=== PATIENT | male | born 1975 ===

== ENCOUNTER → 2016-06-29 | Outpatient (CLI) | payer OTHER | LOC: COL.RAD 06-26 14:15 | DX: S43.492A Other sprain of left shoulder joint, initial encounter (principal); X58.XXXA Exposure to other specified factors, initial encounter | CPT/HCPCS: A9585; Q9967 ==

== ENCOUNTER 2020-11-29 15:15 | Outpatient (RCR) | payer OTHER, BC | END 2021-01-15 09:36 | disposition home or self-care (01) | LOC: PT.GENESIS 15:15 | DX: M25.512 Pain in left shoulder (principal) ==